=== PATIENT | female | born 2005 | race Caucasian/White ===

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

== ENCOUNTER 2024-01-11 07:36 | Outpatient (CLI) | payer BC, SELFPAY ==
[2024-01-11 09:06] LABS: Anion Gap 9 mmol/L (4-12); Blood Urea Nitrogen 12 mg/dL (8-21); Calcium 9.2 mg/dL (8.9-10.7); Carbon Dioxide 28 mmol/L (22-30); Chloride 99 mmol/L (98-107); Estimated Glomerular Filt Rate > 60; Glucose 91 mg/dL (65-110); Potassium 3.8 mmol/L (3.4-5.0); Sodium 136 mmol/L (134-143)
== END 2024-01-11 07:37 | disposition home or self-care (01) ==
PROVIDERS: PCP Nurse Practitioner Family; Visit Provider Family Medicine
DX: I49.3 Ventricular premature depolarization (principal)
CPT/HCPCS: 36415; 80048; 84443

== ENCOUNTER 2024-01-15 13:31 | Outpatient (CLI) | payer BC, SELFPAY ==
[2024-01-15 18:38] LABS: Free T4 Free Thyroxine 1.06 ng/mL (0.78-2.19)
== END 2024-01-15 13:32 | disposition home or self-care (01) ==
LOC: ANHGOSHLAB 13:33
PROVIDERS: PCP Nurse Practitioner Family; Visit Provider Family Medicine
DX: R79.89 Other specified abnormal findings of blood chemistry (principal)
CPT/HCPCS: 36415; 84439; 84443

== ENCOUNTER 2024-02-25 13:49 | Outpatient (CLI) | payer BC, SELFPAY ==
[2024-02-25 14:46] LABS: Beta HCG Quantitative < 2.39 mIU/ML
== END 2024-02-25 13:50 | disposition home or self-care (01) ==
PROVIDERS: PCP Nurse Practitioner Family; Visit Provider Obstetrics & Gynecology
DX: Z32.01 Encounter for pregnancy test, result positive (principal)
CPT/HCPCS: 36415; 84702

== ENCOUNTER 2024-05-27 10:27 | Outpatient (CLI) | payer BC, SELFPAY ==
[2024-05-27 11:17] LABS: Basophils Percent Auto 0.4 % (0.2-1.2); Eosinophils Absolute Auto 0.2 K/mm3 (0-0.3); Eosinophils Percent Auto 3.6 % (0-4.4); Hemoglobin 14.1 g/dL (12.0-15.0); Immature Granulocyte Absolute 0.01 K/mm3 (0.00-0.031); Immature Granulocyte Percent A 0.2 % (0-0.5); Mean Corpuscular HGB Conc 33.6 g/dl (32-36); Mean Corpuscular Volume 92.3 fl (80-100); Mean Platelet Volume 9.6 fl (7.4-10.4); Monocytes Absolute Auto 0.5 K/mm3 (0.1-0.6); Monocytes Percent Auto 9.2 % (2.6-8.5); Neutrophils Absolute Auto 2.8 K/mm3 (1.3-6.7); Neutrophils Percent Auto 50.6 % (45.5-73.1); Platelet Count Result 323 k/mm3 (150-375); Red Blood Count 4.55 M/mm3 (4.2-5.4); Red Cell Distribution Width 11.8 % (11.5-14.5); White Blood Count 5.6 K/mm3 (4.5-10.0)
== END 2024-05-27 10:28 | disposition home or self-care (01) ==
PROVIDERS: PCP Family Medicine Adolescent Medicine; Visit Provider Family Medicine
DX: R00.0 Tachycardia, unspecified (principal); I49.3 Ventricular premature depolarization
CPT/HCPCS: 36415; 84443; 85025

== ENCOUNTER 2024-07-08 11:17 | Outpatient (CLI) | payer BC, SELFPAY ==
--- NOTE | ~2024-07-08 | XR_ITS ---
EXAMINATION: [id number] DATE: 07/08/2024 11:38 INDICATION: Pleurodynia. TECHNIQUE: A frontal view of the chest and 2 views on 3 radiographs of the right ribs were obtained. COMPARISON: Chest single view 12/05/2022 FINDINGS: There is no pneumonia, pleural effusion, or pneumothorax. The heart size is normal. No rib fracture. IMPRESSION: 1. No rib fracture. Reviewed, dictated and finalized at location A. VISION THERAPIST IMPRESSION: 1. No rib fracture.
--- OUTSIDE RECORDS SUMMARY | 2024-07-08 11:22 | XMS_ITS | Clinical Summary ---
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 Never 2020 Average Number of Drinks Not on file 021 Frequency of Binge Drinking Not on file 09/2020 Comments No Sex and Gender Information Value Date Recorded Sex Assigned at Not on file Legal Sex Female 7:33 PM CDT Gender Identity Not on file Sexual Orientation Not on file Last Filed Vital Signs Vital Sign Reading Time Taken Comments Blood Pressure 114/87 12/28/2020 9:18 AM CDT Pulse 82 12/28/2020 9:18 AM CDT Temperature 36.4 C (97.6 F) 2020 4:13 PM CDT Respiratory Rate 20 12/28/2020 9:18 AM CDT Oxygen Saturation 98% 12/28/2020 9:18 AM CDT Inhaled Oxygen Concentration - - Weight 54.4 kg (120 lb) 12/28/2020 9:18 AM CDT Height 160 cm (5' 3 ) 12/28/2020 9:18 AM CDT Body Mass Index 21.26 12/28/2020 9:18 AM CDT Body Mass Index Percentile 59.50% 12/28/2020 9:1 8 AM CDT Growth Chart: [facility] (Girls, 2- 20 Years) Plan of Treatment Health Maintenance Due Date Last Done Comments Annual Physical 11/22/2007 HPV Vaccines (2 - 2-dose series) 05/21/2018 11/19/19 18 Meningococcal B Vaccine (1 o f 2 - Standard) 2020 Hepatitis C 2022 DTaP, Tdap and Td Vaccines ( 1 - Tdap) 11/22/2023 Hepatitis B Vaccines (1 of 3 - 19+ 3-dose series) 11/22/2023 COVID-19 Vaccine (1 - 2023-2 5 season) 2024 Influenza Adult (#1) 2024 Meningococcal Vaccine Aged Out 03/02/2016 No christopher jos eligible based on patient's age to complete this topic Pneumococcal Vaccine: Pediat rics (0 to 5 Years) and At-Risk Patients (6 to 64 Years) Aged Out No longer eligi ble based on patient's age to complete this topic RSV Immunizations Under 20 Months Aged Out No longer eligible based on patient's age to complete this topic Insurance [facility] MEDICAID Care Teams Entry Manager Relationship Specialty Start Date End Date Shelia Vega MD [address] [place] [address] PCP - General PEDIATRICS 05/18/22
--- OUTSIDE RECORDS SUMMARY | 2024-07-08 11:22 | XMS_ITS | Clinical Summary ---
Author Organization [facility] [address] Address [address] [place] [address] Care Team Providers Care Sample Hand Name Role Phone Leonardo Cote MD Primary Care Prov ider Allergies No known active allergies Medications No known medications Active Problems Problem Noted Date Diagnosed Date Palpitations 06/30/2024 Encounters Date Type Department Care Team Description 06/30/2024 9:15 AM NEW ACCOUNTS REPRESENTATIVE Office Visit [facility] Cardiology at [address] [place] [address] Ozzie Hitchcock MD Palpitations (Primary Dx) from Last 3 Months Family History Medical History Relation Name Comments Hypertension Mother Pancreatitis Mother Stroke Mother Relation Name Status Comments Father Alive Mother Alive Social History Tobacco Use Types Packs/Day Years Used Date Smoking Tobacco: Never Smokeless Tobacco: Never Tobacco Cessation:Counseling Given: Not Answered Comments Unknown Sex and Gender Information Value Date Recorded Sex Assigned at Not on file Legal Sex Female 12:30 PM NEW ACCOUNTS REPRESENTATIVE Gender Identity Not on file Sexual Orientation Not on file Obstetrics History Growth Chart Information Age Height Weight [id number] th Percentile BMI Percentile Head Circum Head Circum Percentile Date 18 years 160 cm (5' 3 ) 55.8 kg (123 lb) 51.56%* 2024 * [facility] (Girls, 2-20 Years) Last Filed Vital Signs Vital Sign Reading Time Taken Comments Blood Pressure 122/84 06/30/2024 9:20 AM NEW ACCOUNTS REPRESENTATIVE Pulse 73 06/30/2024 9:20 AM NEW ACCOUNTS REPRESENTATIVE Temperature - - Respiratory Rate - - Oxygen Saturation 99% 06/30/2024 9:20 AM NEW ACCOUNTS REPRESENTATIVE Inhaled Oxygen Concentration - - Weight 55.8 kg (123 lb) 06/30/2024 9:20 AM NEW ACCOUNTS REPRESENTATIVE Height 160 cm (5' 3 ) 06/30/2024 9:20 AM NEW ACCOUNTS REPRESENTATIVE Body Mass Index 21.79 06/30/2024 9:20 AM NEW ACCOUNTS REPRESENTATIVE Plan of Treatment Health Maintenance Due Date Last Done Comments Depression Screening 2004 Hepatitis C Screening 2004 DTaP/Tdap/Td Vaccine (1 - Tdap) 11/22/2015 Varicella Vaccines (1 of 2 - 13+ 2-dose series) 2017 HPV Vaccines (1 - 3-dose series) 11/22/2019 Meningococcal B Vaccine (1 o f 2 - Standard) 2020 Hepatitis B Screening 2022 Regular Well Visit/Exam 18-64 2022 Influenza Vaccine (#1) 2024 Meningococcal Vaccine Aged Out No christopher jos eligible based on patient's age to complete this topic Pneumococcal vaccine <65 Aged Out No longer eligible based on patient's age to complete this topic Procedures Procedure Name Priority Date/Time Associated Diagnosis Comments ECG 12-LEAD Routine 06/30/2024 9:27 AM NEW ACCOUNTS REPRESENTATIVE Palpitations from Last 3 Months Results * ECG 12 lead (06/30/2024 9:27 AM NEW ACCOUNTS REPRESENTATIVE) us Ozzie Hitchcock MD ECG ORDERABLES Edited R esult - Final from Last 3 Months Insurance IDPA [employer] OOS Care Teams Sample Hand Relationship Specialty Start Date End Date Leonardo Cote MD [address] [place] [address] PCP - General Family Medicine 05/27/24
--- OUTSIDE RECORDS SUMMARY | 2024-07-08 11:22 | XMS_ITS | Referral Summary ---
Author Organization [facility] [place] [address] Address [address] [place] [address] Care Team Providers Care Regional Production Manager Name Role Phone Leonardo Cote MD Primary Care Prov ider Encounters Date Type Department Care Team Description 06/30/2024 9:15 AM FURS SALESPERSON Office Visit [facility] Cardiology at [address] [place] [address] Ozzie Hitchcock MD Palpitations (Primary Dx) from Last 3 Months Allergies No known active allergies Medications No known medications Active Problems Problem Noted Date Diagnosed Date Palpitations 06/30/2024 Social History Tobacco Use Types Packs/Day Years Used Date Smoking Tobacco: Never Smokeless Tobacco: Never Tobacco Cessation:Counseling Given: Not Answered Comments Unknown Sex and Gender Information Value Date Recorded Sex Assigned at Not on file Legal Sex Female 12:30 PM FURS SALESPERSON Gender Identity Not on file Sexual Orientation Not on file Last Filed Vital Signs Vital Sign Reading Time Taken Comments Blood Pressure 122/84 06/30/2024 9:20 AM FURS SALESPERSON Pulse 73 06/30/2024 9:20 AM FURS SALESPERSON Temperature - - Respiratory Rate - - Oxygen Saturation 99% 06/30/2024 9:20 AM FURS SALESPERSON Inhaled Oxygen Concentration - - Weight 55.8 kg (123 lb) 06/30/2024 9:20 AM FURS SALESPERSON Height 160 cm (5' 3 ) 06/30/2024 9:20 AM FURS SALESPERSON Body Mass Index 21.79 06/30/2024 9:20 AM FURS SALESPERSON Plan of Treatment Not on file Procedures Procedure Name Priority Date/Time Associated Diagnosis Comments ECG 12-LEAD Routine 06/30/2024 9:27 AM FURS SALESPERSON Palpitations from Last 3 Months Results * ECG 12 lead (06/30/2024 9:27 AM FURS SALESPERSON) us Ozzie Hitchcock MD ECG ORDERABLES Edited R esult - Final from Last 3 Months Insurance IDPA [employer] OOS Member Subscriber Plan / Payer (Ef fective 2021-Present) Name:Jean-Claude Aziza Relation to Subscriber:Child Name:Brendon Bermeo Date of :1977 Address: [address] [place] [address] Payer ID:[id number] (NAIC) Type:[facility] Address: [address] [place] [phone] Care Teams Regional Production Manager Relationship Specialty Start Date End Date Leonardo Cote MD [facility] [place] [address] PCP - General Family Medicine 05/27/24
== END 2024-07-08 11:18 | disposition home or self-care (01) ==
PROVIDERS: PCP Family Medicine Adolescent Medicine; Visit Provider Nurse Practitioner Family
DX: R07.81 Pleurodynia (principal)
CPT/HCPCS: 71101

== ENCOUNTER 2025-05-04 11:32 | Outpatient (CLI) | payer BC, MEDICAID, SELFPAY ==
[2025-05-04 12:41] LABS: Hematocrit 39.6 % (37.0-47.0); Hemoglobin 13.5 g/dL (12.0-15.0); Immature Granulocyte Percent A 0.2 % (0-0.5); Lymphocytes Absolute Auto 2.14 K/mm3 (0.9-3.2); Mean Corpuscular HGB Conc 34.1 g/dl (32-36); Mean Corpuscular Hemoglobin 30.9 pg (26-34); Mean Corpuscular Volume 90.6 fl (80-100); Nucleated Red Blood Cells Absolute Auto 0.000 K/mm3 (0.0-0.012); Nucleated Red Blood Cells Perc 0.0 % (0.0-0.2); Platelet Count Result 325 k/mm3 (150-375); Red Blood Count 4.37 M/mm3 (4.2-5.4); White Blood Count 8.5 K/mm3 (4.5-10.0)
[2025-05-04 13:37] LABS: Thyroid Stimulating Hormone Reflex 4.360 uIU/mL (0.465-4.68)
[2025-05-04 13:42] LABS: Trichomonas Vag PCR NOT DETECTED (NOT DETECTE)
--- OUTSIDE RECORDS SUMMARY | 2025-05-04 14:00 | XMS_ITS | Clinical Summary ---
Author Organization [facility] [place] [address] Address [address] [place] [address] Care Team Providers Care Customs House Broker Name Role Phone Leonardo Cote MD Primary Care Prov ider Allergies No known active allergies Medications metoprolol XL (TOPROL-XL) 25 mg extended release tablet Take 1 tablet (25 mg total) by mouth daily 90 tablet 3 09/21/2024 Active Active Problems Problem Noted Date Diagnosed Date Palpitations 06/30/2024 Family History Medical History Relation Name Comments Hypertension Mother Pancreatitis Mother Stroke Mother Relation Name Status Comments Father Alive Mother Alive Social History Tobacco Use Types Packs/Day Years Used Date Smoking Tobacco: Never Smokeless Tobacco: Never Tobacco Cessation:Counseling Given: Not Answered Comments Unknown Sex and Gender Information Value Date Recorded Sex Assigned at Not on file Legal Sex Female 12:30 PM AIRCRAFT ELECTRICIAN Gender Identity Not on file Sexual Orientation Not on file Last Filed Vital Signs Vital Sign Reading Time Taken Comments Blood Pressure 142/94 08/19/2024 10:30 AM CDT Pulse 103 08/19/2024 10:30 AM CDT Temperature - - Respiratory Rate - - Oxygen Saturation 96% 08/19/2024 10:30 AM CDT Inhaled Oxygen Concentration - - Weight 55.8 kg (123 lb) 08/19/2024 10:30 AM CDT Height 160 cm (5' 3) 08/19/2024 10:30 AM CDT Body Mass Index 21.79 08/19/2024 10:30 AM CDT Plan of Treatment Health Maintenance Due Date Last Done Comments Depression Screening 2004 Hepatitis C Screening 2004 DTaP/Tdap/Td Vaccine (1 - Tdap) 11/22/2015 Varicella Vaccines (1 of 2 - 13+ 2-dose series) 2017 HPV Vaccines (1 - 3-dose series) 11/22/2019 Meningococcal B Vaccine (1 o f 2 - Standard) 2020 Hepatitis B Screening 2022 Regular Well Visit/Exam 18-64 2022 Influenza Vaccine (#1) 2025 Meningococcal Vaccine Aged Out No christopher jos eligible based on patient's age to complete this topic Pneumococcal vaccine <65 Aged Out No longer eligible based on patient's age to complete this topic Insurance IDPA [employer] OOS Member Subscriber Plan / Payer (Ef fective 2021-Present) Name:Aziza Bermeo Relation to Subscriber:Child Name:Brendon Bermeo Date of :1977 Address: [address] [place] [id number] Payer ID:[id number] (NAIC) Type:[facility] Address: [address] [place] [phone] Care Teams Customs House Broker Relationship Specialty Start Date End Date Leonardo Cote MD PCP - General Family Medicine 05/27/24
--- OUTSIDE RECORDS SUMMARY | 2025-05-04 14:00 | XMS_ITS | Clinical Summary ---
Author Organization [facility] Address [address] [place] [address] Care Team Providers Care Retail Special Event Associate Name Role Phone Shelia Kamara MD Primary Care Provide r Allergies No known active allergies Medications No [...] 9:18 AM CDT Height 160 cm (5' 3) 12/28/2020 9:18 AM CDT Body Mass Index 21.26 12/28/2020 9:18 AM CDT Plan of Treatment Health Maintenance Due Date Last Done Comments Annual Physical 11/22/2007 HPV Vaccines (2 - 2-dose series) 05/21/2018 11/19/19 18 Meningococcal B Vaccine (1 o f 2 - Standard) 2020 Hepatitis C 2022 DTaP, Tdap and Td Vaccines ( 1 - Tdap) 11/22/2023 Hepatitis B Vaccines (1 of 3 - 19+ 3-dose series) 11/22/2023 COVID-19 Vaccine (1 - 2024-2 6 season) 2025 Influenza Adult (#1) 2025 Meningococcal Vaccine Aged Out 03/02/2016 No christopher jos eligible based on patient's age to complete this topic Hepatitis A Vaccines Aged Out No long er eligible based on patient's age to complete this topic Pneumococcal Vaccine: Pediat rics (0 to 5 Years) and At-Risk Patients (6 to 49 Years) Aged Out No longer eligi ble based on patient's age to complete this topic RSV Immunizations Under 20 Months Aged Out No longer eligible based on patient's age to complete this topic Insurance [facility] MEDICAID Care Teams Retail Special Event Associate Relationship Specialty Start Date End Date Shelia Kamara MD [address] [place] [address] [place], [place] [phone] PCP - General PEDIATRICS 05/18/22
[2025-05-04 16:18] LABS: Free T4 Free Thyroxine Reflex 1.18 ng/dL (0.78-2.19)
[2025-05-04 17:13] LABS: Total Triiodothyronine (T3) 1.91 NG/ML (0.82-1.58)
== END 2025-05-04 11:33 | disposition home or self-care (01) ==
PROVIDERS: PCP Family Medicine; Referring Provider Nurse Practitioner Obstetrics & Gynecology; Visit Provider Family Medicine
DX: Z11.3 Encounter for screening for infections with a predominantly sexual mode of transmission (principal); R00.0 Tachycardia, unspecified; I49.3 Ventricular premature depolarization
CPT/HCPCS: 36415; 84439; 84443; 84480; 85025; 87491; 87591; 87661